=== PATIENT | female | born 1975 | race Caucasian/White ===

== ENCOUNTER → 2017-04-12 | Outpatient (CLI) | payer BC | LOC: KOH-I 08:17 | DX: R10.9 Unspecified abdominal pain (principal) | CPT/HCPCS: 76705 ==

== ENCOUNTER → 2022-02-11 | Outpatient (CLI) | payer BC | LOC: KOH-I 14:41 | DX: R94.6 Abnormal results of thyroid function studies (principal) | CPT/HCPCS: 76536 ==